=== PATIENT | male | born 1990 | race Caucasian/White ===

== ENCOUNTER 2016-11-03 15:44 | Emergency (ER) | payer BC, OTHER | END 2016-11-03 19:00 | disposition home or self-care (01) | LOC: ER 15:44 | PROC: 3E0234Z Introduction of Serum, Toxoid and Vaccine into Muscle, Percutaneous Approach (ICD-10-PCS; principal; 2016-11-03) | DX: S61.012A Laceration without foreign body of left thumb without damage to nail, initial encounter (principal); W29.3XXA Contact with powered garden and outdoor hand tools and machinery, initial encounter; Y92.009 Unspecified place in unspecified non-institutional (private) residence as the place of occurrence of the external cause; Z85.6 Personal history of leukemia; Z88.1 Allergy status to other antibiotic agents; Z23 Encounter for immunization | CPT/HCPCS: 12001; 90471; 90715; 99070; 99283-25 ==